=== PATIENT | female | born 1960 | race Caucasian/White ===

== ENCOUNTER → 2016-07-14 | Outpatient (CLI) | payer BC ==
--- NOTE | 2016-07-15 13:14 | MAMMOGRAPHY REPORT ---
BILATERAL DIGITAL SCREENING MAMMOGRAM TOMOSYNTHESIS WITH CAD: 07/14/2016 CLINICAL HISTORY: Routine screening. TECHNIQUE: Breast tomosynthesis in addition to standard 2D mammography was performed. Current study was also evaluated with a Computer Aided Detection (CAD) system. COMPARISON: Comparison is made to exams dated: 10/24/2012 mammogram, 10/20/2010 mammogram - [facility], 08/09/2007, and 07/02/2006. BREAST COMPOSITION: The tissue of both breasts is heterogeneously dense, which may obscure small mas ses. FINDINGS: No obvious new mass, architectural distortion or cluster of suspicious microcalcifications is seen. IMPRESSION: ACR BI-RADS CATEGORY 1: NEGATIVE There is no mammographic evidence of malignancy. A 1 year screening mammogram is recommended. The pa tient will receive written notification of the results. Approximately 10% of breast cancers are not detected with mammography. A negative mammographic report should not delay biopsy if a clinically suggestive mass is present. Maribell Bowles M.D. ay/:07/14/2016 18:14:11 Logistics Operations Manager: Maris VIRK(R)(Gail), [facility] letter sent: Normal 1/2 BI-RADS Code: ACR BI-RADS Category 1: Negative
== END | disposition home or self-care (01) ==
LOC: C.MAMM 11:21
PROVIDERS: ATTEND Internal Medicine
DX: Z12.31 Encounter for screening mammogram for malignant neoplasm of breast (principal)

== ENCOUNTER → 2017-02-10 | Outpatient (CLI) | payer BC, OTHER | END | disposition home or self-care (01) | LOC: C.RDSM 10:30 | PROVIDERS: ATTEND Family Medicine | DX: M25.562 Pain in left knee (principal); M76.892 Other specified enthesopathies of left lower limb, excluding foot; M62.81 Muscle weakness (generalized) ==

== ENCOUNTER → 2017-04-23 | Outpatient (CLI) | payer OTHER ==
--- NOTE | 2017-04-23 12:27 | DIAGNOSTIC IMAGING REPORT ---
MRI OF THE LEFT KNEE WITHOUT CONTRAST CLINICAL HISTORY: Left knee pain. Evaluate for meniscal tear. COMPARISON STUDY: Left knee radiographs February 10, 2017. TECHNIQUE: Utilizing a 1.5 Farhana magnet and dedicated coil, multiplanar, multiecho imaging of the left knee was performed without intravenous or intraarticular contrast. FINDINGS: Alignment of the left knee is anatomic. There is no left knee joint effusion. There is an oblique tear of the posterior horn of the medial meniscus which extends to the tibial and femoral articular surfaces. The lateral meniscus is intact. Medial meniscus is slightly extruded. The cruciate and collateral ligaments are intact. There is no suspicious marrow replacement. Extensor mechanism is intact. There is no high-grade chondrosis. No mass or fluid collection shown adjacent to left knee. IMPRESSION: 1. Oblique tear of the posterior horn of the medial meniscus. 2. Intact cruciate and collateral ligaments. Electronically signed by: Nahid Draper M.D. 04/23/2017 12:25 PM Dictated Date/Time: 04/23/2017 12:03 PM
== END | disposition home or self-care (01) ==
LOC: C.MRI 10:15
PROVIDERS: ATTEND Family Medicine
DX: S83.242A Other tear of medial meniscus, current injury, left knee, initial encounter (principal); X58.XXXA Exposure to other specified factors, initial encounter

== ENCOUNTER 2020-03-10 10:42 | Inpatient (IN) ==
--- OUTSIDE RECORDS SUMMARY | 2020-03-10 10:45 | External Medical Summary | Continuity of Care Document ---
:1960 Author Name Chele Limon, Provider Address Unavailable Unavailable , Care Team Providers Name Role Phone Ron Limon, Estefanía Barry Unavailable [email or web address] PCP, UNKNOWN Unavailable Unavailable Unavailable Unavailable Unavailable Problems Encounter for routine gynecological examination (V72.31) (Z0 1.419) Encounter for routine gynecological exam ination with Papanicolaou smear of cervix (V72.31) (Z01.419) Murmur (785.2) (R01.1) Allergies and Adverse Reactions No Known Drug Allergies (Allergy) Medications No Reported Medications Refills: 0 Procedures History of Oral Surgery Tooth Extraction Status: Completed Immunizations Immunizations not documented Family History Father Family history of Lung Cancer (V16.1) Status: Active Mother Family history of Hyperlipidemia Status: Active Social History - Smoking Status Tobacco smoking consumption unknown Never smoked tobacco Plan of Treatment Planned Observations Planned Goals not documented Results No Known Results Results not documented
--- OUTSIDE RECORDS SUMMARY | 2020-03-10 10:45 | External Medical Summary | Continuity of Care Document ---
:1960 Author Name Chele Limon, Provider Address Unavailable Unavailable , Care Team Providers Name Role Phone Ron Limon, Estefanía Barry Unavailable [email or web address] PCP, UNKNOWN Unavailable Unavailable Unavailable Unavailable Unavailable Problems Murmur (785.2) (R01.1) Encounter for routine gynecological exam ination with Papanicolaou smear of cervix (V72.31) (Z01.419) Encounter for routine gynecological examination (V72.31) (Z0 1.419) Allergies and Adverse Reactions No Known Drug [...]
[2020-03-10] MEDS ORDERED: HYDROmorphone INJ 1 MG/ML SYRINGE IM STA (10:53)
[2020-03-10] MEDS ORDERED: ONDANSETRON 4 MG OD TAB PO STA (10:53)
--- NOTE | 2020-03-10 11:28 | XRay Report ---
XR shoulder LT min 2V routine CLINICAL HISTORY: Left shoulder pain following fall. COMPARISON: None FINDINGS: Note is made of an acute significantly displaced transverse fracture of the left humeral n yohana which extends into the humeral head. Fracture is mildly comminuted. The distal component is displ aced 2.8 cm anteriorly with respect to the proximal component. Distal component is also displaced med ially with respect to the proximal component. Alignment of the left acromioclavicular and glenohumera l joints is anatomic. No additional acute fractures are present. IMPRESSION: Acute significantly displaced left humeral neck fracture which extends into the humeral h ead. ACT 112: Negative or not required by law. Electronically signed by: Nahid Draper M.D. 03/10/2020 11:26 AM
[2020-03-10] MEDS ORDERED: HYDROmorphone INJ 1 MG/ML SYRINGE IV STA (12:01)
[2020-03-10] MEDS ORDERED: HYDROmorphone INJ 0.5 MG/0.5 ML SYR IV PRN ×2 (12:01→12:49)
[2020-03-10] MEDS ORDERED: ALUMINUM/MAGNESIUM SUSP 30 ML UDC PO PRN (12:43)
[2020-03-10] MEDS ORDERED: ONDANSETRON INJ 2 MG/ML 2 ML VIAL IV PRN (12:43)
[2020-03-10] MEDS ORDERED: diphenhydrAMINE Capsule 25 MG CAP PO PRN (12:43)
[2020-03-10] MEDS ORDERED: oxyCODONE HCL IR 5 MG TAB (IMMEDIATE RELEASE) PO PRN (12:49)
--- NOTE | 2020-03-10 12:58 | Emergency Department Note ---
History of Present Illness General Chief complaint: Fall Stated complaint: FELL ON ICE/INJURING LEFT ARM Time Seen by Provider: 03/10/20 10:47 Source: patient, RN notes reviewed and old records reviewed Mode of arrival: ambulatory Limitations: no limitations History of Present Illness Provider complaint: Pt c/o left arm pain, fall Onset (ago): hour(s) less than 1 Location: upper extremity and left Radiation: non-radiation Severity: moderate Pain Consistency: + constant Maximum Pain Intensity: 6 Current Pain Intensity: 6 Quality: + aching Relieved By: + immobilization Exacerbated By: + movement Associated symptoms: + denies other symptoms; no chest pain, no cough, no diaphoresis, no fever/chills, no headaches, no loss of appetite, no malaise, no nausea/vomiting, no rash, no seizure, no shortness of breath and no weakness Treatments prior to arrival: none This is a 59-year-old female who was running outside when she slipped on the ice and fell. The patient denies hitting her head however she did injure her left shoulder. She reports she is unable to move her left arm. Describes the pain as an ache made worse with movement. She reports immobilization makes the pain better. She has not taken anything for the pain prior to arrival. Home Medications Medication Instructions Recorded Confirmed Type sertraline 50 mg PO QAM 12/24/17 03/10/20 History Allergies Allergy/AdvReac Type Severity Reaction Status Date / Time No Known Allergies Allergy Verified 03/10/20 11:04 Past Med/Surg History Medical History (Updated 03/10/20 @ 13:10 by Stef Alcaraz MD) Anxiety Cardiac murmur HX Surgical History No history of previous surgery Social History Smoking Status: Never smoker Second Hand Exposure: No; Hx Alcohol Use: Yes (RARELY) Alcohol type: wine Hx Substance Use: No Preferred Language: Venezuelan Communication Ability: Effective Enamel Machine Operator Required: No Beliefs That Will Affect Care: None Current Living Situation: Spouse Feels Safe at Home: Yes Assistive Devices: Glasses Review of Systems A total of 6 systems reviewed and were otherwise negative Physical Exam Vital Signs Vital Signs - 24 hr 03/10/20 10:55 03/10/20 12:05 03/10/20 12:23 Temperature 36.4 C L Temperature Source Oral Pulse Rate 55 L Pulse Rate [Left Finger] 47 L 42 L Pulse Rhythm [Left Finger] Pulse Strength [Left Finger] Respiratory Rate 18 18 18 Respiratory Effort / Characteristics Respiratory Depth Respiratory Pattern Blood Pressure 145/87 H Blood Pressure [Left Arm] 86/57 L 108/66 Blood Pressure Mean 106 Blood Pressure Mean [Left Arm] 66 80 Blood Pressure Position [Left Arm] Pulse Oximetry 100 97 100 Oxygen Delivery Method Room Air Room Air Room Air Sepsis Recent Fever Within 48 Hours No Sepsis New/Unexplained Change in Mental Status N/A Sepsis Action Taken by Nursing No Action Required 03/10/20 12:40 Temperature Temperature Source Pulse Rate Pulse Rate [Left Finger] 40 L Pulse Rhythm [Left Finger] Regular Pulse Strength [Left Finger] Normal Respiratory Rate 20 Respiratory Effort / Characteristics Non-Labored Respiratory Depth Normal Respiratory Pattern Regular Blood Pressure Blood Pressure [Left Arm] 100/58 L Blood Pressure Mean Blood Pressure Mean [Left Arm] 72 Blood Pressure Position [Left Arm] Sitting Pulse Oximetry 97 Oxygen Delivery Method Room Air Sepsis Recent Fever Within 48 Hours Sepsis New/Unexplained Change in Mental Status Sepsis Action Taken by Nursing VITAL SIGNS - Vital signs and nursing notes were reviewed. GENERAL - 59-year-old female appearing stated age who is in no acute distress. Communicates well with provider and answers questions appropriately. SKIN - Without rashes. HEAD - NC/AT. EYES - PERRL with EOMI bilaterally. Sclera anicteric. Palpebral conjunctiva pink and moist with no injection noted. EARS - No deformities of external structures noted on gross examination bilaterally. No pain elicited with palpation of the tragus bilaterally. External auditory canals without discharge or otorrhea. Tympanic membranes pearly bhatt without retraction or bulging. No fluid or purulent material visualized behind the TM. Handle of malleus, umbo, cone of light, pars tensa/flaccid all easily visualized. NOSE - Midline and without cyanosis. No epistaxis or purulent drainage noted. Septum midline without deviation or septal hematoma noted. MOUTH/OROPHARYNX - Without perioral cyanosis. Buccal mucosa pink and moist and without leukoplakia. Tongue midline with equal elevation of palate bilaterally. No tonsillar hypertrophy, erythema, or exudates noted. dentition noted. NECK - Neck with FROM. Supple to palpation. lymphadenopathy noted. No nuchal rigidity. EXTREMITIES - Obvious deformity left upper arm, good ROM left elbow and wrist, Neurovascularly intact NEUROLOGIC - Cranial nerves II through XII grossly intact. Sensory intact to light touch throughout. Patellar reflexes +2/4. PSYCH - A&Ox3 and cooperates fully with examiner. Pt is very pleasant and interacts well with examiner. Course Administered Medications Discontinued Medications Cefazolin Sodium (Cefazolin 1,000 Mg/7.5 Ml Iv Push) Confirm Administered Dose 1,000 mg IV .STK-MED ONE Stop: 03/10/20 12:58 Last Admin: 03/10/20 12:58 Dose: Not Given Documented by: [id number] Hydromorphone HCl (Hydromorphone Inj 1 Mg/Ml Syringe) 1 mg IM NOW STA Stop: 03/10/20 10:54 Last Admin: 03/10/20 10:59 Dose: 1 mg Documented by: [id number] Hydromorphone HCl (Hydromorphone Inj 1 Mg/Ml Syringe) 1 mg IV NOW STA Stop: 03/10/20 12:02 Last Admin: 03/10/20 12:04 Dose: 1 mg Documented by: [id number] Ondansetron HCl (Ondansetron 4 Mg Od Tab) 4 mg PO NOW STA Stop: 03/10/20 10:54 Last Admin: 03/10/20 10:59 Dose: 4 mg Documented by: [id number] Medical Decision Making Differential Diagnosis Fracture, subluxation, dislocation, contusion, ligamentous injury, neurovascular, compartment syndrome, rhabdomyolysis, as well as other p athologies. Medical Records Attestation: I reviewed the patient's medical records. Home Medications Current Medication List: was personally reviewed by me Laboratory Data Attestation: I reviewed the patient's lab results. Lab Results 03/10/20 Range/Units 12:33 COVID-19 Eval Order Covid19 IDNow [phone] [facility] Report Patient: AMRITA TOBIAS Admit Date: 03/10/20 MR#: [id number] Address1: [address] [facility] Acct ID:[id number] Address2: [address] Date: 1960 [facility] Zip: [place] [id number] Age: 59 Location: ED Sex: F Room/Bed: Att Phy: Diagnosis: FELL ON ICE/INJURING LEFT ARM Yuliet Phy: Krista Miles MD Service Date: 03/10/20 Fam Phy: Interpreting Phy: Nahid Draper MD Admit Phy: Ordering Phy: Stef Alcaraz MD cc: ~ XR shoulder LT min 2V routine CLINICAL HISTORY: Left shoulder pain following fall. COMPARISON: None FINDINGS: Note is made of an acute significantly displaced transverse fracture of the left humeral neck which extends into the humeral head. Fracture is mildly comminuted. The distal component is displaced 2.8 cm anteriorly with respect to the proximal component. Distal component is also displaced medially with respect to the proximal component. Alignment of the left acromioclavicular and glenohumeral joints is anatomic. No additional acute fractures are present. IMPRESSION: Acute significantly displaced left humeral neck fracture which extends into the humeral head. ACT 112: Negative or not required by law. Electronically signed by: Nahid Draper M.D. 03/10/2020 11:26 AM Dictated: 03/10/20 1124 Transcribed: 03/10/20 1124 MDM Narrative Patient was seen and evaluated as above in room A11. Review was performed of nursing notes and vital signs. I did review pertinent previous visits and patient history. After obtaining a thorough history and physical examination the above work up was performed. This is a 59-year-old female who presents emergency department complaining of left shoulder pain. Patient was originally given 1 mg of Dilaudid IM. X-rays are concerning for a left humeral head fracture with displacement. Based on this I did discuss the case with the orthopedic surgeon on-call Dr. Bain. He was kind enough to come in and see the patient and is going to bring the patient to the operating room. The patient was evaluated during a period of high volume and high acuity while the hospital was at overcapacity during the global COVID-19 pandemic, and that diagnosis was suspected/considered upon their initial presentation. Their evaluation, treatment and testing was consistent with current guidelines for patients who present with complaints or symptoms that may be related to COVID- 19. Impression & Plan Fall, Fracture of head of humerus Discharge Plan Visit Data Chief Complaint: Fall Stated Complaint: FELL ON ICE/INJURING LEFT ARM ED Provider: Stef Alcaraz Discharge Problem: Fall, Fracture of head of humerus Forms Stand Alone Forms: My [facility] [employer] Prescriptions Prescriptions: No Action sertraline 50 mg Tablet 50 mg PO QAM RF: 0 Discharge Problem: Fall Qualifiers: Encounter type: initial encounter Qualified Code(s): W19.XXXA - Unspecified fall, initial encounter Fracture of head of humerus Qualifiers: Encounter type: initial encounter Fracture type: closed Laterality: left Qualified Code(s): S42.292A - Other displaced fracture of upper end of left humerus, initial encounter for closed fracture
[2020-03-10 13:07] LABS: Calcium 8.9 mg/dl (8.5-10.1)
--- NOTE | 2020-03-10 13:27 | History & Physical Report ---
Date of Service March 10, 2020 Assessment & Plan (1) Fracture of neck of left humerus: The humeral neck fracture is completely displaced in an otherwise healthy and active female with what appears to be good bone quality. Given her age, activity, and fracture pattern, I did recommend surgical management with open reduction and internal fixation. Given the degree of displacement and pain expected with any attempts at a futile reduction, I recommend admission to the hospital for expeditious surgery. Given the timing and her n.p.o. status, the best option is for tomorrow morning. Plan for admission today for pain control and then operative fixation tomorrow morning. The plan will be for a left proximal humerus open reduction and internal fixation with a proximal humerus plate. I discussed the surgery indications, treatment alternatives which are minimal, and expected benefits and complications with the patient and her who was in the waiting area. I discussed the risks include but not limited to infection, neurovascular injury, arthrofibrosis, need for repeat or revision procedures, symptomatic implants, implant complications, nonunion or malunion, blood clots, pain syndromes and complications related to anesthesia. She asked appropriate questions, demonstrate good understanding, and elects to proceed with surgery. Informed consent was documented. Admit to the [facility] for pain control. N.p.o. at midnight. On-call to the OR tomorrow morning. History of Present Illness Chief Complaint: Right proximal humerus fracture Primary Care Provider: Krista Miles MD 59-year-old otherwise healthy and active female sustained a slip and fall while outside running this morning in the snow, resulting in impact to her left upper extremity. She had immediate shoulder pain and inability to move it. She was brought to the emergency room because of pain and deformity. The emergency room work-up revealed a displaced proximal humerus fracture. Allergies Allergy/AdvReac Type Severity Reaction Status Date / Time No Known Allergies Allergy Verified 03/10/20 11:04 Home Medications Medication Instructions Recorded Confirmed Type sertraline 50 mg PO QAM 12/24/17 03/10/20 History Past Med/Surg History Medical History (Updated 03/10/20 @ 13:24 by Stef Bain MD) Anxiety Cardiac murmur HX Surgical History (Updated 03/10/20 @ 13:21 by Stef Bain MD) H/O arthroscopic knee surgery Pratik Stephens 2018, partial medial meniscectomy Social History Smoking Status: Never smoker Second Hand Exposure: No; Hx Alcohol Use: Yes (RARELY) Alcohol type: wine Hx Substance Use: No Preferred Language: Panamanian Communication Ability: Effective Ciaio Counter Molder Required: No Beliefs That Will Affect Care: None Current Living Situation: Spouse Feels Safe at Home: Yes Assistive Devices: Glasses Review of Systems All systems reviewed & are unremarkable except as noted in HPI & below. Physical Exam Right upper extremity: Full active range of motion without pain. Bilateral lower extremities: No evidence of trauma, full active range of motion without pain. Left upper extremity: There is obvious mild edema and developing ecchymosis about her glenohumeral joint. She is focally tender along the anterior aspect of her humerus and rotator interval. Light touch sensation is intact to her axillary nerve distribution. Her forearm and elbow and wrist are without tenderness. She has full motor and sensory function to her left hand. Constitutional well developed and well nourished; no acute distress and not intoxicated appearing ENMT external ear and nose normal, oropharynx normal Respiratory normal respiratory effort; no respiratory distress Cardiovascular Extremities: normal capillary refill; no edema Skin no rashes, warm and dry Psychiatric A+Ox3, euthymic affect Results & Data Results & Data Laboratory Results H & H 03/10/20 03/10/20 Range/Units 12:00 12:33 Calcium 8.9 (8.5-10.1) mg/dl COVID-19 [facility] Findings Radiographs: Available views of the left shoulder demonstrate a 2 part proximal humerus fracture with potential comminution. The fracture is at the anatomic neck and the distal fragment is displaced greater than 100% medially. There is also a rotational deformity. There is a large portion of the greater tuberosity and lesser tuberosity remain intact with good bone stock. There is a nice long segment of calcar that is intact to the proximal fragment. PG Care Time/CCT Total # of Minutes Spent Total Time Spent with Patient: Total time spent is greater than 50% in coordination of care (as documented) at patient's floor/unit and/or counseling patient: Coding Level of Care Code 12045 Initial Inpt Care Lvl 3 Diagnoses Fracture of neck of left humerus S42.212A
[2020-03-10 13:30] LABS: Basophils # (auto) 0.05 K/uL (0-0.2); Basophils % (auto) 0.6 %; Eosinophils # (auto) 0.03 K/uL (0-0.5); Eosinophils % (auto) 0.4 %; Hematocrit (blood only) 36.7 % (37-47); Hemoglobin 12.6 g/dL (12.0-16.0); Immature Granulocytes # (auto) 0.01 K/uL (0.00-0.02); Immature Granulocytes % (auto) 0.1 %; Lymphocytes # (auto) 1.07 K/uL (1.2-3.4); Lymphocytes % (auto) 12.6 %; Mean Corpuscular Hemoglobin 32.6 pg (25-34); Mean Corpuscular Hgb Conc 34.3 g/dL (32-36); Mean Corpuscular Volume 95.1 fL (80-100); Mean Platelet Volume 10.8 fL (7.4-10.4); Monocytes # (auto) 0.34 K/uL (0.11-0.59); Neutrophils % (auto) 82.3 %; Platelet Count 258 K/uL (130-400); RDW Coefficient of Variation 12.8 % (11.5-14.5); RDW Standard Deviation 44.4 fL (36.4-46.3); Red Blood Count 3.86 M/uL (4.2-5.4)
[2020-03-10 13:34] LABS: BUN Creatinine Ratio 23.7 (10-20); Creatinine Clr Calc Pharmacy 60.2 ml/min; Est GFR (African American) 77.4; Est GFR (Non-African American) 66.8; Potassium 3.9 mmol/L (3.5-5.1)
[2020-03-10] MEDS: ACETAMINOPHEN 500 MG TAB PO PRN (15:45)
[2020-03-10] MEDS: oxyCODONE HCL IR 5 MG TAB (IMMEDIATE RELEASE) PO PRN ×2 (17:26→21:37)
[2020-03-10] MEDS: DOCUSATE SODIUM 100 MG CAP PO SCH (21:38)
[2020-03-11] MEDS: HYDROmorphone INJ 0.5 MG/0.5 ML SYR IV PRN ×2 (00:13→05:32)
[2020-03-11] MEDS: oxyCODONE HCL IR 5 MG TAB (IMMEDIATE RELEASE) PO PRN ×2 (01:52→08:42)
[2020-03-11] MEDS ORDERED: ceFAZolin 1000MG 1,000 MG/7.5 ML SYR IV SCH (06:00)
[2020-03-11] MEDS: DOCUSATE SODIUM 100 MG CAP PO SCH ×2 (07:35→21:14)
[2020-03-11] MEDS: SERTRALINE HCL 50 MG TABLET PO SCH (07:36)
--- NOTE | 2020-03-11 09:24 | Anesthesiology Consultation ---
Date of Service March 11, 2020 Assessment & Plan (1) Encounter for pre-operative examination: Chart Review Chart Review: Acceptable Risk for Surgery History Surgery Operation Date: 03/11/20 09:55 Proposed Procedures p Open Reduction Internal Fixation Left Proximal Humerus - Stef Bain MD Height/Weight Height: 5 ft 6 in Weight: 59.8 kg Allergies Allergy/AdvReac Type Severity Reaction Status Date / Time No Known Allergies Allergy Verified 03/10/20 11:04 Medications Home Medications Medication Instructions Recorded Confirmed Last Taken sertraline 50 mg PO QAM 12/24/17 03/10/20 03/09/20 Active Medications Generic Name Dose Route Start Last Admin Trade Name Freq PRN Reason Stop Dose Admin Acetaminophen 1,000 mg 03/10/20 14:00 03/10/20 15:45 Acetaminophen 500 Mg Tab PO 04/09/20 13:59 1,000 mg Q8 PRN Administration temp greater than 38.5 degrees Docusate Sodium 100 mg 03/10/20 21:00 03/11/20 07:35 Docusate Sodium 100 Mg Cap PO 04/09/20 20:59 Not Given BID JOCELYNN Hydromorphone HCl 0.5 mg 03/10/20 12:49 03/11/20 05:32 Hydromorphone Inj 0.5 Mg/0.5 Ml Syr IV 03/24/20 12:48 0.5 mg Q3H PRN Administration Pain (6,7,8,9,10) Oxycodone HCl 10 mg 03/10/20 12:49 03/11/20 08:42 Oxycodone Hcl Ir 5 Mg Tab (Immediate Release) PO 03/24/20 12:48 10 mg Q4H PRN Administration SEVERE Pain (7,8,9,10) Sertraline HCl 50 mg 03/11/20 09:00 03/11/20 07:36 Sertraline Hcl 50 Mg Tablet PO 04/10/20 08:59 Not Given QAM JOCELYNN NPO Date Last Intake of Fluids: 03/11/20 Time Last Intake of Fluids: 01:30 Last Intake of Fluids Comment: sip with medication Date Last Intake of Solids: 03/10/20 Time Last Intake of Solids: 18:00 Past Medical History Medical History (Updated 03/11/20 @ 09:23 by Get Crook MD) Anemia Anxiety Cardiac murmur HX Past Surgical History Surgical History H/O arthroscopic knee surgery Pratik Stephens 2018, partial medial meniscectomy Social History Smoking Status: Never smoker Hx Alcohol Use: Yes (RARELY) Alcohol type: wine alcohol intake frequency: a few times a month Hx Substance Use: No Physical Exam Vital Signs Last Vital Signs Temp 36.9 C 03/11/20 08:23 Pulse 58 L 03/11/20 08:23 Resp 18 03/11/20 08:23 BP 129/80 03/11/20 08:23 Pulse Ox 99 03/11/20 08:23 Testing Laboratory Results 03/10/20 12:00 03/10/20 12:00 COVID test yesterday negative Electrocardiogram Date: 03/10/20 Findings: + SB @ (47)
[2020-03-11] MEDS ORDERED: MIDAZOLAM HCL 1 MG/ML 2ML VIAL ONE (09:49)
[2020-03-11] MEDS ORDERED: fentaNYL citrate 100 MCG/2 ML VIAL ONE ×2 (09:49→14:26)
[2020-03-11] MEDS ORDERED: ROPIVACAINE 0.5% 5 MG/ML 30 ML VIAL ONE ×2 (10:11)
[2020-03-11] MEDS ORDERED: EPINEPHrine INJ 1 MG/ML AMP ONE (10:12)
--- NOTE | 2020-03-11 10:23 | History & Physical Bridge Note ---
Date of Service March 11, 2020 History & Physical Bridge Note I have examined the patient, reviewed the History & Physical and in the interval since the performance of the History & Physical I have noted the following changes of clinical significance: no changes noted. No complications overnight. Reviewed surgical plan this morning on rounds. Consent confirmed. Patient is aware of COVID-19 risks. Patient is asymptomatic for COVID-19. Patient has been tested for COVID-19 - [NEGATIVE]. Proceed with surgery.
[2020-03-11] MEDS ORDERED: ceFAZolin 2,000 MG/15 ML IV PUSH IV ONE (10:24)
[2020-03-11] MEDS ORDERED: ceFAZolin 2000MG 2,000 MG/15 ML SYR IV ONE (10:30)
[2020-03-11] MEDS ORDERED: ePHEDrine sulfate 50 MG/ML AMP IV PRN (11:10)
[2020-03-11] MEDS ORDERED: ATROPINE SULFATE 0.1 MG/ML 10ML SYR IV PRN (11:10)
[2020-03-11] MEDS ORDERED: ONDANSETRON INJ 2 MG/ML 2 ML VIAL IV PRN (11:10)
[2020-03-11] MEDS ORDERED: fentaNYL citrate 100 MCG/2 ML VIAL IV PRN (11:10)
[2020-03-11] MEDS ORDERED: HYDROmorphone INJ 1 MG/ML SYRINGE IV PRN (11:10)
[2020-03-11] MEDS ORDERED: LIDOCAINE HCL 2% 2 ML VIAL/AMP(20MG/ML) INFIL ONE (11:19)
[2020-03-11] MEDS ORDERED: ONDANSETRON INJ 2 MG/ML 2 ML VIAL ONE (11:19)
[2020-03-11] MEDS ORDERED: PHENYLEPHRINE HCL 10 MG/ML VIAL ONE (11:19)
[2020-03-11] MEDS ORDERED: ROCURONIUM BROMIDE 10 MG/ML 5 ML VIAL IV ONE (11:19)
[2020-03-11] MEDS ORDERED: DEXAMETHASONE SOD INJ 4 MG/ML VIAL ONE (11:19)
[2020-03-11] MEDS ORDERED: PROPOFOL IV EMULSION 10 MG/ML 20 ML VIAL IV ONE (11:19)
[2020-03-11] MEDS ORDERED: ePHEDrine sulfate 50 MG/ML AMP ONE (12:34)
--- NOTE | 2020-03-11 13:17 | Electrocardiogram Report ---
Test Reason : Blood Pressure : / mmHG Vent. Rate : 047 BPM Atrial Rate : 047 BPM P-R Int : 156 ms QRS Dur : 090 ms QT Int : 496 ms P-R-T Axes : 063 060 039 degrees QTc Int : 438 ms Sinus bradycardia Early repolarization Otherwise normal ECG When compared with ECG of 15-DEC-2017 12:50, No significant change was found Confirmed by Gato Morrison ([id number]) on 03/11/2020 1:17:00 PM Referred By: REFERRED SELF Confirmed By:Gato Morrison
[2020-03-11] MEDS ORDERED: ceFAZolin 1000MG 1,000 MG/7.5 ML SYR IV ONE ×2 (14:26→22:00)
--- NOTE | 2020-03-11 14:39 | Fluoroscopy Report ---
INTRAOPERATIVE RADIOGRAPHS CLINICAL HISTORY: Open reduction and internal fixation of the left humerus. Fluoroscopy time: 52 seconds. FINDINGS: 6 spot fluoroscopic views of the left humerus are correlated with radiographs dated 03/10/19. There are 2 buttress plates fixating a comminuted fracture of the left humeral head and neck. The larger buttress plate is seen along the lateral cortex. Numerous cortical lag screws transfix the bu ttress plates. Near-anatomic alignment is been restored. Overlying soft tissue edema is noted. The or thopedic hardware appears intact. IMPRESSION: Intraoperative images from open reduction and internal fixation of a left proximal bernardo l fracture as above. Electronically signed by: Bradley Blackburn M.D. 03/11/2020 2:37 PM
--- NOTE | 2020-03-11 15:02 | Post Operative Brief Note ---
PG Immediate Post Op with CF Date of Surgery March 11, 2020 Pre & Post Diagnosis Operation Date: 03/11/20 09:55 Pre-Op Diagnosis: LEFT PROXIMAL HUMERUS FRACTURE Post-Op Diagnosis: LEFT PROXIMAL HUMERUS FRACTURE I identified the patient and participated in the time-out.: Yes Procedure Operation Date: 03/11/20 09:55 Actual Procedures p Open Reduction Internal Fixation Left Proximal Humerus(Left) - Stef Bain MD Surgeon Stef Bain MD Registered Nurse First Assistant Elias Maddox PA-C Estimated Blood Loss 150 Findings Consistent with Post-Op Diagnosis Specimens Specimen Description: no specimen per surgeon Drains [place] Catheter (patient straight cathed at end of procedure)
--- NOTE | 2020-03-11 15:27 | XRay Report ---
XR shoulder LT min 2V routine CLINICAL HISTORY: postop in pacu. Left shoulder fracture. COMPARISON STUDY: Left shoulder 03/10/2020. FINDINGS: Status post internal fixation of a left humeral neck fracture with cortical plates and scre ws. The hardware is intact. Alignment is near-anatomic. No dislocation. IMPRESSION: Status post internal fixation of a left humeral neck fracture. The hardware appears inta ct. ACT 112: Negative or not required by law. Electronically signed by: Dean Quiñones M.D. 03/11/2020 3:26 PM
--- NOTE | 2020-03-11 15:30 | Operative Report ---
PG Post Operative Report Pre & Post Diagnosis Operation Date: 03/11/20 09:55 Pre-Op Diagnosis: LEFT PROXIMAL HUMERUS FRACTURE Post-Op Diagnosis: LEFT PROXIMAL HUMERUS FRACTURE I identified the patient and participated in the time-out.: Yes Procedure Operation Date: 03/11/20 09:55 Actual Procedures p Open Reduction Internal Fixation Left Proximal Humerus(Left), left open biceps tenodesis- Stef Bain MD Surgeon Stef Bain MD Lithograph Printer Elias aMddox PA-C Estimated Blood Loss 150 Findings See Below There is a comminuted transversely oriented fracture with calcar remnant on the proximal fragment that was provisionally fixed with a 6 hole 2.0 mm mini fragment plate on the anterior aspect of the calcar. Final construct was the 5 hole Synthes proximal humerus plate with multiple locking screw fixation and a cortical screw into the medial calcar spike. All Synthes implants. There was significant posterior metadiaphyseal junction comminution. Specimens None Anesthesia Type General Regional Complications none Disposition Accompanied Patient To Recovery: Yes Disposition: Recovery Room Indications 59-year-old female who sustained a fall onto her left upper extremity resulting in a significantly displaced fracture of the anatomic neck of the left humerus. Given her displacement, fracture pattern, and significant pain, she was admitted to the hospital for surgical stabilization. We discussed risks and benefits of the surgery in detail. Informed consent was obtained at the bedside in the hospital. Description of Procedure On the day of surgery, the patient was greeted in the preoperative holding area. The informed consent was reviewed and confirmed by myself and the patient. The patient identified the surgical site and was marked by me. The patient was then turned over to anesthesia. Anesthesia performed a regional anesthetic block with excellent effect. Patient was then taken to the operating place upon the OR table and anesthesia was induced. The airway was secured. We then positioned the arm on the beachchair apparatus to ensure adequate visualization for fluoroscopy. The patient was positioned in the beachchair with all bony prominences well- padded. The operative extremity was then prepped and draped in usual sterile fashion for beachchair position with the head elevated approximately 30 degrees. The arm was placed in neutral model arm positioner to assist with positioning. Surgical timeout was called by the circulating nurse and verified all present. Antibiotics been infused and equipment was available and functional. Standard deltopectoral incision was made sharply, and the cephalic vein was dissected and protected medially. The anterior aspect of the deltoid insertion was slightly released a few millimeters to facilitate exposure. The pec tendon and falciform ligament slightly released and a cuff of tissue was preserved for later repair. The bicep tendon was intact. There is significant hematoma in the area of the circumflex humeral artery, as of its compromise from the fracture. Fracture fragments were identified and longitudinal traction rotation was used to provisionally reduce. Fracture debris was cleaned up using irrigation and sharp debridement. There is significant comminution on the posterior lateral aspect of the humeral shaft of the head to the metadiaphyseal junction. A large butterfly fragment was preserved on the back table in saline for later placement because it represented a large portion of the lateral wall. The medial calcar was visible and the spike on the proximal fragment was used as the fracture bolaños. The bicep tendon was incarcerated in the fracture and did disrupt attempts at initial reduction. The rotator interval was exploited and a biceps tenotomy was performed on the superior labrum. The biceps tendon was then preserved for later tenodesis with a pectoralis tendon. With the biceps tendon out of the way the fracture reduction was more easily achieved. Given the displacement of the shaft medially and the spike of bone on the proximal fragment that consisted of the calcar, I chose to do a buttress plate for provisional fixation. A 2 mm 6hole Synthes mini fragmentary plate was placed in the distal fragment just medial to the biceps groove. Reduction was then achieved a longitudinal traction rotation until we got good fracture keys anteriorly. I then fixed the 6-hole plate to the proximal fragment. We used unicortical nonlocking screws in this mini fragment plate. This achieved good initial provisional reduction with excellent caodaism of this anatomy on fluoroscopy. Posterior comminution was still evident. We then position the arm in multiple planes for fluoroscopy fluoroscopic study. Reduction was near-anatomic. A 5 hole plate was then placed and we ensured that it was adequate in length. It did allow adequate fixation to the distal fragment. The large butterfly fragment was preserved was placed back in its anatomic position, before the plate was placed against the shaft. It was provisionally placed against bone using a K wire through its most superior hole. With the use fluoroscopy to ensure appropriate placement. Then placed a nonlocking cortical screw in the sliding hole which placed the plates firmly against the cortex. We then started made sure position was adequate before placing locking screws in the most proximal points of the plate. The provisional plate stabilization pin did break when we tried to remove it. It provided additional fixation, did not interfere with any screws, was not prominent, and there was no complication evident with leaving it. It was cut flush with the plate. The bone quality of the locking screws in the proximal fragment seemed to be poor, with the locking she was able to toggle upon their entry. For that reason I wanted to get cortical fixation on the proximal fragment. We removed one of the access screws from the central portion of the plate which was locking. I then drilled using fluoroscopy to the medial calcar and achieved cortical fixation there with a 3.5 millimeter screw. Then placed the remainder of the shaft locking screws in standard fashion. Fluoroscopy was used to ensure appropriate screw lengths in multiple planes throughout the head and along the shaft. There appeared to be anatomic reduction and stable fixation. The mini fragment screws were then tightened once again to ensure good cortical buttress on the calcar. Final fluoroscopic views were taken. The biceps tenodesis was completed by using #2 Ethibond suture and using mattress sutures with a wrapping of the tendon around the pec tendon. This secured it well for the tenodesis. I then repaired the pectoralis tendon back to its remnant cuff. Only the superior one third was involved with the release. The surgery site was then thoroughly irrigated using normal saline. The deltopectoral interval was approximated loosely with 0 Vicryl suture. Deep fascial tissue was approximated using 0 Vicryl suture. The dermal layer was approximated using interrupted 3-0 Monocryl suture. Final 4-0 subcuticular Monocryl closure was performed, backed up by Steri-Strips. The wound was dressed with sterile Xeroform, sterile gauze, and an ABD contained by Ioban. The arm was then placed in a standard sling. She was then turned over anesthesia. Patient tolerated procedure well, was extubated the operative without complication, was transferred to the PACU in stable condition. Disposition: Patient will remain in the sling for 6 weeks and be nonweightbearing until radiographic evidence of some healing. We will begin physical therapy in 1 to 2 weeks. Will approach motion in a conservative manner given the comminution. She can use aspirin for DVT prophylaxis starting the day after surgery. Physician life science research assistant attestation: Elias Maddox PA-C was present and scrubbed for the duration of the case. He was essential to prepping/draping, patient positioning, retraction, and assistance with wound closure. I attest to the content of the Intraoperative Record and any orders documented therein. Any exceptions are noted below.
--- NOTE | 2020-03-11 15:36 | Anesthesiology Progress Note ---
Date of Service March 11, 2020 Anesthesia Post Procedure Vital Signs Vital Signs: Temp Pulse Pulse Pulse Resp BP BP 03/11/20 15:30 60 15 101/62 03/11/20 15:20 72 16 95/61 L 03/11/20 15:10 78 19 109/64 03/11/20 15:04 36.4 C L 84 17 106/67 03/11/20 10:15 36.8 C 57 L 18 118/72 03/11/20 08:23 36.9 C 58 L 18 129/80 03/10/20 23:15 36.8 C 51 L 14 107/66 03/10/20 16:06 36.6 C 50 L 18 109/70 Pulse Ox 03/11/20 15:30 99 03/11/20 15:20 98 03/11/20 15:10 99 03/11/20 15:04 100 03/11/20 10:15 97 03/11/20 08:23 99 03/10/20 23:15 95 03/10/20 16:06 98 Pain Intensity Left Shoulder: Pain Intensity: 5 Transfer of Care Handoff Completed per policy Notes Mental Status: alert / awake / arousable and participated in evaluation Patient Amnestic to Procedure: Yes Nausea / Vomiting: adequately controlled Pain: adequately controlled Airway Patency, RR, SpO2: stable & adequate BP & HR: stable & adequate Hydration State: stable & adequate Anesthetic Complications: no major complications apparent and Pt Satisfied with anesthetic care
[2020-03-12 00:24] LABS: Hematocrit (blood only) 33.3 % (37-47); Hemoglobin 11.2 g/dL (12.0-16.0)
[2020-03-12] MEDS: oxyCODONE HCL IR 5 MG TAB (IMMEDIATE RELEASE) PO PRN ×4 (00:49→13:04)
[2020-03-12] MEDS: HYDROmorphone INJ 0.5 MG/0.5 ML SYR IV PRN (02:51)
--- NOTE | 2020-03-12 06:53 | Orthopedic Progress Note ---
Date of Service March 12, 2020 Assessment & Plan (1) Fracture of neck of left humerus: She is making progress as expected on postop day 1. Like to have an occupational therapy consult to help her with getting about her ADLs in the sling and nonweightbearing. She can go home today when pain is manageable on oral medications and after Occupational Therapy has seen her. Subjective Reports burning pain in her shoulder, as expected. She thinks the block is entirely worn off. She tolerated some dinner last night. Otherwise, no complaints. Review of Systems All systems reviewed & are unremarkable except as noted in HPI & below. Physical Exam She is awake and alert and conversant. Left upper extremity: The sling is well fit. The dressing is clean dry and intact. She has full intact motor function to her hand. Sensation is intact to light touch, including the axillary nerve distribution to the posterior shoulder. Constitutional WD/WN, vitals as above no acute distress and not intoxicated appearing Respiratory normal respiratory effort; no labored breathing Cardiovascular Extremities: normal capillary refill Results & Data Results & Data Laboratory Results . H & H 03/10/20 03/12/20 Range/Units 12:00 00:15 Hgb 12.6 11.2 L (12.0-16.0) g/dL Hct 36.7 L 33.3 L (37-47) % Diagnostic Findings Postop radiographs demonstrate acceptable reduction and no hardware complications. PG Care Time/CCT Total # of Minutes Spent Total Time Spent with Patient: Total time spent is greater than 50% in coordination of care (as documented) at patient's floor/unit and/or counseling patient: Coding Level of Care Code 51502 Post Operative Follow-Up Diagnoses Fracture of neck of left humerus S42.212A
[2020-03-12] MEDS: SERTRALINE HCL 50 MG TABLET PO SCH (07:34)
[2020-03-12] MEDS: ACETAMINOPHEN 500 MG TAB PO PRN (07:35)
[2020-03-12] MEDS: DOCUSATE SODIUM 100 MG CAP PO SCH (09:32)
--- NOTE | 2020-03-12 12:05 | Discharge Summary ---
Date of Service March 12, 2020 Admission HPI (Per Admitting) 59-year-old otherwise healthy and active female sustained a slip and fall while outside running this morning in the snow, resulting in impact to her left upper extremity. She had immediate shoulder pain and inability to move it. She was brought to the emergency room because of pain and deformity. The emergency room work-up revealed a displaced proximal humerus fracture. Admission Exam (Per Admitting) Right upper extremity: Full active range of motion without pain. Bilateral lower extremities: No evidence of trauma, full active range of motion without pain. Left upper extremity: There is obvious mild edema and developing ecchymosis about her glenohumeral joint. She is focally tender along the anterior aspect of her humerus and rotator interval. Light touch sensation is intact to her axillary nerve distribution. Her forearm and elbow and wrist are without tenderness. She has full motor and sensory function to her left hand. Principal Diagnosis Same as "Discharge Diagnosis" noted below under Discharge Instructions. Discharge Exam She is awake and alert and conversant. Left upper extremity: The sling is well fit. The dressing is clean dry and intact. She has full intact motor function to her hand. Sensation is intact to light touch, including the axillary nerve distribution to the posterior shoulder. Discharge Data Procedures Performed Operation Date: 03/11/20 09:55 Actual Procedures p Open Reduction Internal Fixation Left Proximal Humerus(Left) - Stef Bain MD Ordered Studies 03/11/20 07:00 FL fluoroscopy <1hr Routine FL humerus LT 2V Routine 03/11/20 10:16 US - OR guided needle placemen Routine Hospital Course (1) Fracture of neck of left humerus: She was admitted preoperatively for pain control and awaiting OR availability. On March 11, 2020, she was taken to the operating room and unde rwent left proximal humerus open reduction internal fixation. The surgery was accomplished without complications. She recovered from anesthesia without issue. She was transferred back to her hospital room for further recovery. On postoperative day 1, she was found to have pain that was manageable on oral medications. She did have about of dizziness when she got up to go to the bathroom, but this resolved quickly. She was completely asymptomatic after lunch. She had been seen and evaluated by the OT on consult for activities of daily living. She was found otherwise stable for discharge home. Encounter type: initial encounter Fracture type: closed Qualified Code(s): S42.212A - Unspecified displaced fracture of surgical neck of left humerus, initial encounter for closed fracture PG Care Time/CCT Total # of Minutes Spent Total Time Spent with Patient: Total time spent is greater than 50% in coordination of care (as documented) at patient's floor/unit and/or counseling patient: Discharge Plan Discharge Items Patient Disposition: Home - Self-Care Reason For Visit: LEFT PROXIMAL HUMERUS FRACTURE Discharge Diagnosis: Left proximal humerus fracture Activity: Per Instructions section Non-emergency contact: Surgeon Call non-emergency contact if: you have any medication questions, your pain is not controlled and your temperature is above 101 Follow-up/Referrals: Stef Bain MD [Surgeon] - 03/22/20 9:40 am Krista Miles MD [Primary Care Provider] - Diet: Regular Addtl Attending Provider Instructions: Stef Bain M.D. [facility] [address] [facility], [place] [address] WOUND CARE: Leave your dressing in place and keep the area clean and dry. After 3 days, you may remove your dressing. DO NOT REMOVE ANY SUTURES. DO NOT REMOVE THE PAPER TAPE STRIPS THAT ARE CROSSING YOUR INCISION THEY WILL FALL OFF GRADUALLY IN 2-3 WEEKS. After removing your dressing, you may begin to shower with the paper tape strips in place. Do not soak the incision. Allow gentle soap and water to run over the wound(s) and pat dry. Please cover the incision(s) with a clean, dry dressing, as needed. Do not use any ointments or topical medications unless directed by your surgeon. Do not submerse the incisions in water no pools, oceans, lakes, jacuzzis, bathtubs, etc for at least 3 weeks. ACTIVITY: Remain in the sling provided. Do not lift anything heavier than a cup of coffee with that hand. You may type or use a keyboard as tolerated. You may come out of the sling for careful hygiene and Range of Motion exercises, only. Please perform ROM (range of motion) exercises at least three times daily: 1. Wrist flexion and extension 2. Finger pump 3. Elbow flexion/extension and forearm rotation Do not reach out to your side (do not rotate your hand laterally NO EXTERNAL ROTATION) PAIN CONTROL: Use frequent ice to reduce amount of pain medications. Use for 30 minutes per hour. Do not leave in place longer than 30 minutes, especially when your block is in effect, to prevent frostbite or thermal injury. Medications: 1. Oxycodone (OxyIR) 1-2 tablet(s) orally every 4 hours for pain as needed. Use with Tylenol. Begin tapering OxyIR as soon as possible: reduce from 2 to 1 pills per dose, then spread out the doses over greater time intervals, then try to use only for therapy or for comfort while sleeping. Continue to use regular Tylenol until pain subsides. 2. Tylenol (325mg): 3 tablets every 8 hours orally. Regular dosing of Tylenol is an important part of your baseline pain control. Do not taper Tylenol until you have successfully tapered off of regular OxyIR. Do not take more than 3000mg of Tylenol per day. 3. Zofran 1 tablet orally every 6 hours as needed for nausea related to anesthesia, pain, and narcotic medications OVER THE COUNTER: Narcotics will cause constipation. Colace and or Miralax can help while you are taking oxycodone or other narcotics. 4. Colace (100mg): take 1-2 tabs twice daily to avoid constipation from OxyIR or other narcotics. 5. Miralax 1 tablespoon in a glass of water 2 times daily until normal bowel movements FOLLOWUP: 1. Ortho Clinic with Dr. Bain: You should be seen in 10-14 days. Please call immediately to schedule if you do not have an appointment. 2. PHYSICAL THERAPY: It is OK to be seen by your therapist before the orthopedic postop appointment, if a specific consult has been placed. Pending Studies at Discharge: No Stand-Alone Forms: My [facility] [employer] Smoking Cessation Medications and DC Order Prescriptions: New aspirin 325 mg tablet 325 mg PO DAILY 42 Days Qty: 42 RF: 0 ondansetron HCl [Zofran] 4 mg tablet 4 mg PO DAILY PRN (Reason: nausea and vomiting) Qty: 10 RF: 0 oxycodone 5 mg tablet 5 - 10 mg PO Q4H PRN (Reason: pain) Qty: 30 RF: 0 Continued sertraline 50 mg Tablet 50 mg PO QAM RF: 0 Discharge Orders: Discharge Order (Routine); Ordered 03/12/20 Ordered By: Stef Bain Admission Data Admit Date/Time: 03/10/20 12:44 Attending Provider: Stef Bain Admit Provider: Stef Bain Primary Care Provider: Krista Miles Other Interventions: Discharge Summary Assessment (RN) Last Done: 03/12/20 11:50
== END 2020-03-12 14:08 | disposition home or self-care (01) | DRG 494 ==
LOC: ED 10:42 → 3N 12:44